=== PATIENT | male | born 1985 | race Caucasian/White ===

== ENCOUNTER 2017-12-13 13:44 | Emergency (ER) | payer SELFPAY ==
[~2017-12-13] VITALS: Ht 177.8 cm; Wt 72.6 kg
[2017-12-13 13:58] VITALS: BP 141/66
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
[2017-12-13] MEDS ORDERED: Norco 5mg/325mg tab ORAL ONE (14:15)
[2017-12-13] MEDS ORDERED: NORCO 5-325 TA1 EACH ORAL (16:14)
[2017-12-13 16:35] VITALS: BP 132/79
[2017-12-13 16:40] VITALS: BP 132/79
--- NOTE | 2017-12-14 09:55 | Diagnostic Imaging Report ---
Indication: Back pain Comparison: None Findings: 2 views of the thoracic spine were obtained. Normal alignment is demonstrated. Vertebral body heights and intervertebral disc heights are normal. The posterior elements including the facets are unremarkable. Soft tissues are unremarkable. Impression: No acute injury appreciated.
--- NOTE | 2017-12-14 09:58 | Diagnostic Imaging Report ---
Indication: Back pain Comparison: None Findings: 3 views of the lumbar spine were obtained. No acute fracture or malalignment is identified. Vertebral body heights and disk spaces are well maintained. Minimal vertebral endplate scalloping noted, indicative of mild degenerative disease. Posterior elements are unremarkable. Impression: No acute findings.
--- NOTE | 2017-12-14 10:08 | Diagnostic Imaging Report ---
Indication: Pain left wrist pain Findings: 3 views of the left wrist were obtained. There is a fracture of the scaphoid. The fracture is unusual and appears to involve the radial aspect of the scaphoid along the inferior margin of the bone as well as the scaphoid waist. This there is no malalignment. IMPRESSION: Acute fracture of the scaphoid
--- NOTE | 2017-12-14 10:31 | Diagnostic Imaging Report ---
Indication: pain. Left hand pain Findings: 3 views of the left hand were obtained. There is acute fracture of the scaphoid waist. There is also fracture at the base of the first proximal phalange extending into the MCP joint. A third intra-articular fracture at the base of the first metacarpal noted as well. Soft tissue swelling noted. IMPRESSION: Several acute fractures noted as described above
== END 2017-12-13 16:40 | disposition home or self-care (01) ==
LOC: EMR 14:20
DX: S62.002A Unspecified fracture of navicular [scaphoid] bone of left wrist, initial encounter for closed fracture (principal); S62.512A Displaced fracture of proximal phalanx of left thumb, initial encounter for closed fracture; S62.232A Other displaced fracture of base of first metacarpal bone, left hand, initial encounter for closed fracture; V18.0XXA Pedal cycle driver injured in noncollision transport accident in nontraffic accident, initial encounter; Y93.55 Activity, bike riding; Y92.9 Unspecified place or not applicable; M54.9 Dorsalgia, unspecified; Z88.2 Allergy status to sulfonamides; Z88.8 Allergy status to other drugs, medicaments and biological substances
CPT/HCPCS: 29125; 72020; 72070; 99284